=== PATIENT | female | born 1955 | race Caucasian/White ===

== ENCOUNTER 2016-07-22 09:52 | Emergency (ER) | payer BC ==
[~2016-07-22] VITALS: Ht 175.3 cm; Wt 132.4 kg
[~2016-07-22 09:52] MED LIST: ALDACTAZIDE 251 EACH PO; CENTRUM SILVER1 EAC4 PO; DITROPAN5 MG PO; FISH OIL 1,0001 EAC7 PO; KETOCONAZOLE60 GM TP; LITE COAT ASPI325 M1 PO; POTASSIUM-9999 MG PO; PROAIR HFA8.5 GM IH; ULTRAM50 MG PO; VERAPAMIL HCL120 M1 PO; ZYRTEC10 M3 PO
[2016-07-22] MEDS ORDERED: VIBRAMYCIN100 MG PO (11:45)
[2016-07-22 11:56] VITALS: BP 138/76
== END 2016-07-22 11:57 | disposition home or self-care (01) ==
LOC: EME 09:52
DX: S60.572A Other superficial bite of hand of left hand, initial encounter (principal); I10 Essential (primary) hypertension; W55.01XA Bitten by cat, initial encounter; Z23 Encounter for immunization
CPT/HCPCS: 99281; 99284

== ENCOUNTER 2016-07-25 08:36 | Emergency (ER) | payer BC ==
[~2016-07-25] VITALS: Ht 175.3 cm; Wt 132.4 kg
[~2016-07-25 08:36] MED LIST changes: +VIBRAMYCIN100 MG PO
[2016-07-25 11:42] VITALS: BP 121/65
== END 2016-07-25 11:43 | disposition home or self-care (01) ==
LOC: EME 08:36
PROC: 3E0234Z Introduction of Serum, Toxoid and Vaccine into Muscle, Percutaneous Approach (ICD-10-PCS; principal; 2016-07-25)
DX: Z20.3 Contact with and (suspected) exposure to rabies (principal); Z23 Encounter for immunization
CPT/HCPCS: 99281; 99283